=== PATIENT | male | born 1950 | race American Indian/Alaskan Native ===

== ENCOUNTER 2018-10-17 06:15 | Day surgery (SDC) | payer MEDICARE, OTHER ==
[2018-10-17] MEDS ORDERED: ECOTRIN PO NR (06:49)
[2018-10-17] MEDS ORDERED: NACL 0.9% 500 ML 500 ML IV SCH (07:00)
[2018-10-17 07:29] LABS: Basophils # (Auto) 0.1 K/mm3 (0.0-0.1); Basophils % (Auto) 1.1 % (0.0-1.8); Eosinophils # (Auto) 0.3 K/mm3 (0.0-0.4); Eosinophils % (Auto) 4.8 % (0.0-4.3); Hematocrit 40.9 % (35.5-45.6); Hemoglobin 13.8 gm/dl (11.8-15.2); Lymphocytes # (Auto) 1.6 K/mm3 (1.2-5.4); Lymphocytes % (Auto) 23.8 % (13.4-35.0); Mean Corpuscular HGB Conc 34 % (32-34); Mean Corpuscular Volume 89 fl (84-94); Monocytes # (Auto) 0.6 K/mm3 (0.0-0.8); Monocytes % (Auto) 9.2 % (0.0-7.3); Platelet Count 189 K/mm3 (140-440); Red Cell Distribution Width 12.9 % (13.2-15.2)
[2018-10-17 07:39] LABS: INR 0.89 (0.87-1.13); Partial Thromboplastin Time 25.6 Sec. (24.2-36.6)
[2018-10-17 07:53] LABS: BUN/Creatinine Ratio 21; Blood Urea Nitrogen 19 mg/dL (9-20); Calcium 8.8 mg/dL (8.4-10.2); Hemolysis Index 16
[2018-10-17] MEDS ORDERED: HEPARIN 10,000 UNITS/10 ML ONE (11:26)
[2018-10-17] MEDS ORDERED: HEPARIN/NS 5000 UNIT/500ML(CATH LAB) 1,000 ML IR ONE (11:26)
[2018-10-17] MEDS ORDERED: NITROGLYCERIN SYRINGE 0 ML ONE (11:27)
[2018-10-17] MEDS: SUBLIMAZE ONE ×2 (11:48→11:50)
[2018-10-17] MEDS: XYLOCAINE 2% INFILTRATI ONE ×2 (11:48→11:52)
[2018-10-17] MEDS: VERSED ONE ×2 (11:48→11:50)
--- NOTE | 2018-10-17 12:24 | Discharge Summary ---
Short Stay Discharge Plan Activity: advance as tolerated Weight Bearing Status: Partial Weight Bearing Diet: low fat, low cholesterol, low salt Wound: keep clean and dry Special Instructions: no heavy lifting (3 days) Follow up with: JONATHAN SIDHU MD [Primary Care Provider] - 7 Days ELKE VALLEJO MD [Staff Physician] - 7 Days
[2018-10-17] MEDS ORDERED: NACL 0.9% 1000 ML 1,000 ML IV SCH (13:00)
--- NOTE | 2018-10-17 13:15 | Cardiac Catherization Report ---
This is a right and left heart catheterization procedure report. REASON FOR PROCEDURE: The patient is a 68-year-old man who presented with exertional chest pain and shortness of breath. He underwent noninvasive testing with stress thallium, which was negative, but the patient continues to complain of exertional dyspnea and exertional angina. Cardiac catheterization was recommended. PROCEDURES: 1. Right heart catheterization. 2. Left heart catheterization. 3. Selective left and right coronary angiography. 4. Left ventricular angiography. 5. Sedation time, start 11:50, end 12:25. DESCRIPTION OF PROCEDURE: The patient was prepped and draped in a sterile fashion after informed consent. The right femoral artery and vein were both entered using Seldinger technique followed by placement of a 6-Upper Sor[place] sheath in the artery and a 7-Upper Sor[place] sheath in the vein. A [place]all[place] catheter was then advanced to the pulmonary artery position. The pigtail catheter was advanced to the left ventricle. Simultaneous left and right heart filling pressures were recorded. Cardiac output was measured using the thermodilution method. The [place]all[place] catheter was then withdrawn and right heart pressures recorded on pullback. Left ventricular angiography was performed following which a pigtail catheter was withdrawn across the aortic valve and transaortic pressure was recorded. Selective left and right coronary angiography was performed using a #4 left Bettie and a #4 right Bettie. The catheters and the wires were then removed, sheath removed, and hemostasis achieved using an Angio-Seal device on the arterial, and manual compression on the venous. The patient was returned to the postprocedure unit in stable condition. There were no complications. FINDINGS: HEMODYNAMICS: The mean right atrial pressure was 10. Right ventricular pressure was 40/12. Pulmonary artery pressure was 40/20. The mean pulmonary artery wedge pressure was 15. Left ventricular end diastolic pressure was 18. Ascending aortic pressure was 122/76. There was no significant pressure gradient on pullback across the aortic valve. Cardiac output was 6.5 liters per minute. CORONARY ANGIOGRAPHY: Left main coronary artery was angiographically normal. Left anterior descending artery and its diagonal branches were free of significant disease. Circumflex artery and its obtuse marginal branches were free of significant disease. The right coronary artery was dominant and similarly free of significant disease. There was normal left ventricular systolic function, ejection fraction 55-60%. CONCLUSION: 1. Mild increase in right and left heart filling pressures, mild pulmonary hypertension. 2. Angiographically normal coronary arteries. 3. Normal left ventricular systolic function, ejection fraction 55-60%. RECOMMENDATION: Risk factor modification and medical therapy. JOB# [id number] CA/NTS
[2018-10-17 15:30] VITALS: BP 120/78
== END 2018-10-17 16:00 | disposition home or self-care (01) ==
LOC: CATHLABREC 06:15
PROVIDERS: ATTEND Internal Medicine Cardiovascular Disease
DX: I20.8 Other forms of angina pectoris (principal); R07.89 Other chest pain; I27.20 Pulmonary hypertension, unspecified; E78.00 Pure hypercholesterolemia, unspecified; I10 Essential (primary) hypertension; M17.2 Bilateral post-traumatic osteoarthritis of knee; Z79.899 Other long term (current) drug therapy; Z79.01 Long term (current) use of anticoagulants; Z88.0 Allergy status to penicillin; Z98.890 Other specified postprocedural states; Z87.442 Personal history of urinary calculi
CPT/HCPCS: 36415; 80048; 85025; 85610; 85730; 93005; 93010; 93460; 99156; 99157; C1760; C1894; J1644; J2250; J3010; J7040; Q9967